=== PATIENT | male | born 1995 | race Caucasian/White ===

== ENCOUNTER 2018-07-31 19:51 | Emergency (ER) | payer OTHER ==
[~2018-07-31] VITALS: Ht 167.6 cm; Wt 86.2 kg
[2018-07-31 19:55] VITALS: BP 144/78
[2018-07-31 20:58] LABS: BARBITURATE, URINE NEG. ng/ml (NEG <=200); BENZODIAZEPINE, URINE NEG. ng/mL (NEG <=200); CANNABINOID, URINE NEG. ng/mL (NEG <=50); COCAINE, URINE NEG. ng/mL (NEG <=300); OPIATE, URINE NEG. ng/mL (NEG <=2000); PHENCYCLIDINE SCREEN,URINE NEG. ng/mL (NEG <=25)
[2018-07-31] MEDS ORDERED: KETOROLAC 30 MG/ML VIAL IM ONE (21:45)
[2018-07-31 22:13] VITALS: BP 135/81
== END 2018-07-31 22:12 | disposition home or self-care (01) ==
LOC: MED 19:51
DX: R07.89 Other chest pain (principal)
CPT/HCPCS: 71045; 80305; 93005; 96372; 99284; J1885